=== PATIENT | female | born 1945 | race Caucasian/White ===

== ENCOUNTER → 2017-05-19 | Outpatient (CLI) | payer OTHER ==
[2014-10-10 09:51] VITALS: BP 107/73
--- NOTE | 2017-05-21 09:22 | MG ---
HISTORY: SCREENING Comparison: Multiple priors dating back to February 18, 2011 FINDINGS: Bilateral CC and MLO projections of the right and left breast were obtained. Scattered fibroglandula r tissue is seen to be present without significant interval change. No suspicious architectural dist ortion, mass or clustered microcalcifications can be observed to suggest malignancy. No skin thicken ing or nipple retraction is appreciated. No pathological lymphadenopathy can be identified. Benign- appearing calcifications are noted within the right and left breast. IMPRESSION: NO RADIOGRAPHIC EVIDENCE OF MALIGNANCY. ACR CATEGORY 2 - benign findings. FOLLOW-UP EXAM 1 YEAR. Diagnostic CAD was utilized and reviewed. * 0 (ZERO) - ASSESSMENT INCOMPLETE; ADDITIONAL IMAGING IS NEEDED. * 1/1 (ONE) - NEGATIVE. * 2/II (TWO) - BENIGN FINDINGS. * 3/III (THREE) - PROBABLY BENIGN FINDING; SHORT INTERVAL FOLLOW-UP SUGGESTED. * 4/IV (FOUR) - SUSPICIOUS ABNORMALITY; BIOPSY SHOULD BE CONSIDERED. * 5/V (FIVE) - HIGHLY SUSPICIOUS OF MALIGNANCY; BIOPSY SHOULD BE PERFORMED. A NEGATIVE X-RAY REPORT SHOULD NOT DELAY BIOPSY IF A DOMINANT OR CLINICALLY SUSPICIOUS MASS IS PRESENT; 4 TO 8 PERCENT OF CANCERS ARE NOT IDENTIFIED BY X-RAY. A NEGA TIVE REPORT MAY REINFORCE THE CLINICAL IMPRESSION. ADENOSIS AND DENSE BREASTS MAY OBSCURE AN UNDERLY ING NEOPLASM. Reported By:
== END ==
LOC: RAD 14:15
PROVIDERS: ATTEND Specialist
DX: Z12.31 Encounter for screening mammogram for malignant neoplasm of breast (principal)
CPT/HCPCS: 77067

== ENCOUNTER → 2017-11-22 | Outpatient (CLI) | payer OTHER ==
[2014-10-10 09:51] VITALS: BP 107/73
--- NOTE | 2017-11-22 15:42 | RAD ---
Indication: Pain Exam: pelvis and frog-leg views both hips. Findings: There is oela-so-iekivapa joint space narrowing in both hips. No fracture or dislocation is seen. The pelvis is intact. 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
== END ==
LOC: RAD 12:39
PROVIDERS: ATTEND Nurse Practitioner Family
DX: M25.551 Pain in right hip (principal); M25.552 Pain in left hip
CPT/HCPCS: 73521

== ENCOUNTER 2019-10-18 15:55 | Observation (INO) ==
--- NOTE | 2019-10-18 16:20 | ED.ABDFE ---
HPI - PCP Primary Care Physician: HUBERT AUSTIN - Complaint Chief Complaint Doctors Comments: Patient seen in Er yesterday for vomiting and abdominal pain. Workup was unremarkable except low Potassium. Patient returns with vomiting continuing and LUQ pain. Chief Complaint:: PT TO ER WITH C/O SEVERE ABD PAIN ( LEFT SIDE ) AND N/V ..BR - Nurses notes reviewed Nurses Notes Review: Yes - Source History Provided: Patient - Mode of arrival Mode of Arrival: Ambulatory - Timing Onset of Chief Complaint: 10/16/19 Came on: Gradually - Duration Duration: Since Onset How lon Duration: Days - Location Location: LUQ, Epigastric - Severity Severity: Moderate - Quality Quality: Aching - Modifying Improving Factors: Nothing - Associated signs and symptoms Associated Signs and Symptoms: Nausea, Vomiting - Time seen Time Seen by Provider: 10/18/19 16:03 PMH - PMH Past Medical History: Yes Past Medical History: Hypertension Past Surgical History: Yes Surgical History: , Ortho Surgery - Family History History of Family Medical Conditions: No - Social History Does patient currently use any type of tobacco product: No Have you used tobacco products in the last 12 months: No Type of Tobacco Use: None Does any household member use tobacco: No Alcohol Use: None Do you use any recreational Drugs:: No Lives With: Family Lives Where: Home - infectious screening In the last 2 months have you had wt loss of >10#?: NO Have you had fever, night sweats or hemotysis?: No Have you traveled outside the country in the last 6 months?: No Isolation: Standard ROS - Review of Systems Constitutional: No Symptoms Reported Eyes: No Symptoms Reported ENTM: No Symptoms Reported Respiratoy: No Symptoms Reported Cardiovascular: No Symptoms Reported Gastrointestinal/Abdominal: Nausea, Vomiting Genitourinary: No Symptoms Reported Neurological: No Symptoms Reported Musculoskeletal: No Symptoms Reported Integumentary: No Symptoms Reported Hematologic/Lymphatic: No Symptoms Reported Endocrine: No Symptoms Reported Psychiatric: Depression All Other Systems: Reviewed and Negative PE - General Limitations: No Limitations General Appearance: Alert, In No Apparent Distress - Head Head Exam: Normal Inspection - Eyes Eye exam: Normal Appearance, EOMI - ENT ENT Exam: Normal Exam, Normal Oropharynx - Neck Neck Exam: Normal Inspection, Full ROM - Chest Chest Inspection: Normal Inspection - Respiratory Respiratory Exam: Normal Lung Sounds Bilat Respiratory Exam: Bilateral Clear to Auscultation - Cardiovascular Cardiovascular Exam: Regular Rate - Abdominal Exam Abdominal Exam: Normal Inspection, Normal Bowel Sounds, Soft, Tenderness (LUQ). negative: Distention, Guarding Abdominal Tenderness: LUQ - Back Back Exam: Normal Inspection, Full ROM - Extremeties Extremities Exam: Normal Inspection, Full ROM - Neurologic Neurological Exam: Alert, Oriented X3, CN II-XII Intact - Psychiatric Psychiatric Exam: Normal Affect, Normal Mood - Skin Skin Exam: Warm, Intact, Normal Color - Vital Signs Vitals: Temperature 98.0 F Pulse Rate 72 Respiratory Rate 20 Blood Pressure [Left Arm] 129/69 Blood Pressure 117/54 O2 Sat by Pulse Oximetry 95 Course - Treatment Treatment: 1731: case discussed with DR. Mojica observation for IVF, antemetics and possible laxatives ROR - Labs Reviewed Result Diagrams: 10/18/19 16:32 10/18/19 16:32 - Labs Reviewed Laboratory: WBC 7.3 X10^3/uL (3.6-10.0) 10/18/19 16:32 RBC 4.62 X10^6/uL (3.5-5.4) 10/18/19 16:32 Hgb 14.3 g/dL (12.0-16.0) 10/18/19 16:32 Hct 42.3 % (36.0-47.0) 10/18/19 16:32 MCV 91.6 fL (80.0-100.0) 10/18/19 16:32 MCH 31.0 pg (27.0-34.0) 10/18/19 16:32 MCHC 33.8 g/dL (33.0-35.0) 10/18/19 16:32 RDW 15.6 % (11.6-16.5) 10/18/19 16:32 Plt Count 135 X10^3/uL (150.0-450.0) L 10/18/19 16:32 MPV 10.0 fL (7.4-11.0) 10/18/19 16:32 Neut % (Auto) 55.5 % (42.0-75.0) 10/18/19 16:32 Lymph % (Auto) 34.1 % (21.0-51.0) 10/18/19 16:32 [place] % (Auto) 9.5 % (0.0-13.0) 10/18/19 16:32 Eos % (Auto) 0.2 % (0.9-2.9) L 10/18/19 16:32 Baso % (Auto) 0.7 % (0.2-1.0) 10/18/19 16:32 Neut # (Auto) 4.1 x10^3/uL (2.2-4.8) 10/18/19 16:32 Lymph # (Auto) 2.5 X10^3/uL (1.3-2.9) 10/18/19 16:32 [place] # (Auto) 0.7 x10^3/uL (0.3-0.8) 10/18/19 16:32 Eos # (Auto) 0.0 x10^3/uL (0.0-0.2) 10/18/19 16:32 Baso # (Auto) 0.0 X10^3/uL (0.0-0.1) 10/18/19 16:32 Absolute Nucleated RBC 0.1 /100WBC 10/18/19 16:32 Sodium 140 mmol/L (136-145) 10/18/19 16:32 Corrected Sodium 140 mmol/L (136-145) 10/18/19 16:32 Potassium 3.3 mmol/L (3.5-5.1) L 10/18/19 16:32 Chloride 102 mmol/L (98-107) 10/18/19 16:32 Carbon Dioxide 29.5 mmol/L (21-32) 10/18/19 16:32 BUN 15 mg/dL (7-18) 10/18/19 16:32 Creatinine 1.18 mg/dL (0.55-1.02) H 10/18/19 16:32 Est GFR (MDRD) Af Amer 58 (>60) L 10/18/19 16:32 Est GFR (MDRD) Non-Af 48 (>60) L 10/18/19 16:32 Glucose 116 mg/dL (65-99) H 10/18/19 16:32 Calcium 9.2 mg/dL (8.5-10.1) 10/18/19 16:32 Corrected Calcium TNP 10/18/19 16:32 Total Bilirubin 0.50 mg/dL (0.2-1.0) 10/18/19 16:32 AST 30 Units/L (15-37) 10/18/19 16:32 ALT 36 Units/L (12-78) 10/18/19 16:32 Alkaline Phosphatase 122 Units/L (46-116) H 10/18/19 16:32 Total Protein 7.0 g/dL (6.4-8.2) 10/18/19 16:32 Albumin 3.4 g/dL (3.4-5.0) 10/18/19 16:32 Globulin 3.6 g/dL (2.5-4.5) 10/18/19 16:32 Albumin/Globulin Ratio 0.9 Ratio (1.1-2.1) L 10/18/19 16:32 Amylase 26 Units/L (25-115) 10/18/19 16:32 Lipase 91 Units/L (73-393) 10/18/19 16:32 Opioid - Opioid Risk Tool Age (Bernard box if 16-45): No History of Preadolescent Sexual Abuse: No Total: 0 Total Score Risk Category: Low Risk - Diagnosis Discharge Problem: Intractable vomiting with nausea - Discharge Plan Condition: Stable - Follow ups/Referrals Follow ups/Referrals: VALENTINA AHUMADA [Primary Care Provider] - 3 days - Instructions
[2019-10-18] MEDS ORDERED: TORADOL 60 MG VIAL IVP ONE (16:25)
[2019-10-18] MEDS ORDERED: ZOFRAN INJ 4 MG VIAL IVP ONE (16:25)
[2019-10-18] MEDS ORDERED: NS 500 ML IV 1,000 ML IV ONE (16:26)
[2019-10-18] MEDS ORDERED: TORADOL 30 MG VIAL ONE (16:27)
[2019-10-18] MEDS ORDERED: ZOFRAN INJ 4 MG VIAL ONE (16:27)
[2019-10-18 16:40] LABS: BASOPHILS % (AUTO) 0.7 % (0.2-1.0); EOSINOPHILS % (AUTO) 0.2 % (0.9-2.9); HEMATOCRIT 42.3 % (36.0-47.0); HEMOGLOBIN 14.3 g/dL (12.0-16.0); LYMPHOCYTES # (AUTO) 2.5 X10^3/uL (1.3-2.9); LYMPHOCYTES % (AUTO) 34.1 % (21.0-51.0); MEAN CORPUSCULAR HGB CONC 33.8 g/dL (33.0-35.0); MEAN CORPUSCULAR VOLUME 91.6 fL (80.0-100.0); MONOCYTES # (AUTO) 0.7 x10^3/uL (0.3-0.8); MONOCYTES % (AUTO) 9.5 % (0.0-13.0); NEUTROPHILS # (AUTO) 4.1 x10^3/uL (2.2-4.8); NEUTROPHILS % (AUTO) 55.5 % (42.0-75.0); PLATELET COUNT 135 X10^3/uL (150.0-450.0); RED BLOOD COUNT 4.62 X10^6/uL (3.5-5.4); RED CELL DISTRIBUTION WIDTH 15.6 % (11.6-16.5); WHITE BLOOD COUNT 7.3 X10^3/uL (3.6-10.0)
[2019-10-18] MEDS ORDERED: NS 1000 ML 1,000 ML ONE (16:40)
[2019-10-18 16:51] LABS: ALANINE AMINOTRANSFERASE 36 Units/L (12-78); ALBUMIN 3.4 g/dL (3.4-5.0); ALKALINE PHOSPHATASE 122 Units/L (46-116); AMYLASE 26 Units/L (25-115); ASPARTATE AMINO TRANSFERASE 30 Units/L (15-37); BLOOD UREA NITROGEN 15 mg/dL (7-18); CALCIUM 9.2 mg/dL (8.5-10.1); CARBON DIOXIDE 29.5 mmol/L (21-32); CHLORIDE 102 mmol/L (98-107); COR NA(FOR HYPERGLY) 140 mmol/L (136-145); CREATININE 1.18 mg/dL (0.55-1.02); LIPASE 91 Units/L (73-393); SODIUM 140 mmol/L (136-145); eGFR NON BLACK RACES 48 (>60)
[2019-10-18] MEDS ORDERED: REGLAN INJ 10 MG VIAL IVP ONE (17:24)
[2019-10-18] MEDS ORDERED: REGLAN INJ 10 MG VIAL ONE (17:26)
[2019-10-18 18:27] VITALS: BMI 30.9
[2019-10-18] MEDS ORDERED: ZOFRAN INJ 4 MG VIAL IVP PRN (20:02)
[2019-10-18] MEDS: DILAUDID INJ IVP PRN (20:28)
[2019-10-18 20:48] LABS: BILIRUBIN,URINE NEGATIVE (NEGATIVE); BLOOD/HEMOGLOBIN,URINE 1+ (NEGATIVE); GLUCOSE, URINE NEGATIVE (NEGATIVE); KETONES,URINE 3+ (NEGATIVE); LEUKOCYTE ESTERASE ,URINE 1+ (NEGATIVE); NITRITES,URINE NEGATIVE (NEGATIVE); PROTEIN,URINE 2+ (NEGATIVE); UROBILINOGEN,URINE NORMAL (NORMAL)
[2019-10-18 20:52] LABS: APPEARANCE,URINE SLIGHTLY HAZY (CLEAR); COLOR,URINE YELLOW (YELLOW)
[2019-10-18 20:56] LABS: BACTERIA,URINE TRACE /HPF (NEGATIVE); MUCUS,URINE FEW /HPF (NEGATIVE); SQUAMOUS EPITHELIAL CELL,UR FEW /HPF (NEGATIVE)
[2019-10-19] MEDS: NS 1000 ML 1,000 ML IV SCH ×3 (00:46→07:15)
[2019-10-19] MEDS: DILAUDID INJ IVP PRN ×2 (04:45→13:02)
[2019-10-19] MEDS ORDERED: XANAX PO PRN (08:58)
[2019-10-19] MEDS ORDERED: ZOLOFT PO ONE ×2 (10:23→20:16)
[2019-10-19] MEDS: HYDROCHLOROTHIAZIDE 12.5 MG CAP PO SCH (10:37)
[2019-10-19] MEDS: COLACE CAP 100 MG PO SCH ×2 (10:37→20:23)
[2019-10-19] MEDS: SYNTHROID 112 mcg TAB PO SCH (10:38)
[2019-10-19] MEDS: TOPROL XL PO SCH (10:38)
[2019-10-19] MEDS: MOBIC TAB 15 MG PO SCH (10:38)
[2019-10-19] MEDS: TYLENOL #3 TAB (W/CODEINE) PO SCH ×5 (10:38→22:10)
[2019-10-19] MEDS: ZOLOFT PO SCH ×2 (10:39→20:25)
[2019-10-19] MEDS: LOVENOX INJ 40 MG SYR SC SCH (11:01)
[2019-10-19] MEDS: MICRO K EXTEN CAP 10 MEQ PO SCH ×4 (12:41→22:10)
[2019-10-19] MEDS ORDERED: ZOCOR TAB 20 MG PO SCH (21:00)
[2019-10-19] MEDS ORDERED: KLONOPIN TAB 1 MG PO SCH (21:00)
[2019-10-19] MEDS ORDERED: WELLBUTRIN XL 150 MG (DAILY) PO SCH (21:00)
[2019-10-20] MEDS: NS 1000 ML 1,000 ML IV SCH ×2 (06:38→09:22)
[2019-10-20] MEDS: MICRO K EXTEN CAP 10 MEQ PO SCH (06:40)
[2019-10-20] MEDS ORDERED: ZOLOFT PO ONE (08:04)
[2019-10-20] MEDS: HYDROCHLOROTHIAZIDE 12.5 MG CAP PO SCH (08:23)
[2019-10-20] MEDS: TYLENOL #3 TAB (W/CODEINE) PO SCH (08:23)
[2019-10-20] MEDS: COLACE CAP 100 MG PO SCH (08:24)
[2019-10-20] MEDS: ZOLOFT PO SCH (08:24)
[2019-10-20] MEDS: MOBIC TAB 15 MG PO SCH (08:24)
[2019-10-20] MEDS: SYNTHROID 112 mcg TAB PO SCH (08:25)
[2019-10-20] MEDS: TOPROL XL PO SCH (08:25)
[2019-10-20] MEDS: LOVENOX INJ 40 MG SYR SC SCH (08:29)
[2019-10-20 10:09] LABS: IRON 68 ug/dL (50-175)
[2019-10-20 10:19] VITALS: BP 142/75
== END 2019-10-20 11:20 | disposition home or self-care (01) ==
LOC: ER 16:01 → MED/SURG 16:01
PROVIDERS: ADMIT Obstetrics & Gynecology Obstetrics; ATTEND Obstetrics & Gynecology Obstetrics
DX: E87.6 Hypokalemia; Z79.899 Other long term (current) drug therapy; B02.29 Other postherpetic nervous system involvement; Z86.19 Personal history of other infectious and parasitic diseases; E03.8 Other specified hypothyroidism; R10.12 Left upper quadrant pain; R94.4 Abnormal results of kidney function studies
CPT/HCPCS: 36415; 80053; 81001; 82150; 82607; 82728; 82746; 83540; 83690; 83735; 84132; 84466; 85025; 96360; 96361; 96365; 96367; 96372; 96374; 96375; 99284; A4222; G0378; J1170; J1650; J1885; J2405; J2765; J7030; J7040; S0106